=== PATIENT | male | born 1980 | race African-American/Black ===

== ENCOUNTER 2017-09-18 12:45 | Emergency (ER) | payer OTHER ==
[2017-09-18 13:03] VITALS: BP 129/66; PULSE 79; TEMP 97.8; BMI 20.7
[2017-09-18] MEDS ORDERED: IBUPROFEN 600 MG TABLET (FP) PO ONE ×2 (14:03→14:07)
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
== END 2017-09-18 14:50 | disposition home or self-care (01) ==
LOC: JERFT 12:45
DX: S40.012A Contusion of left shoulder, initial encounter (principal)
CPT/HCPCS: 73030-TC-LT; 99281-25